=== PATIENT | female | born 1945 | race Hispanic/Latino ===

== ENCOUNTER 2018-03-16 13:19 | Emergency (ER) | payer OTHER, MEDICARE ==
[2018-03-16 13:28] VITALS: BMI 19.9
[2018-03-16 13:44] VITALS: RESP 18
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
[2018-03-16 16:02] VITALS: PULSE 78
[2018-03-16 16:06] VITALS: BP 120/70; TEMP 98.6; O2SAT 99
== END 2018-03-16 16:06 | disposition home or self-care (01) ==
LOC: ED 13:19
DX: M79.641 Pain in right hand (principal); M25.571 Pain in right ankle and joints of right foot; S90.511A Abrasion, right ankle, initial encounter; V43.52XA Car driver injured in collision with other type car in traffic accident, initial encounter